=== PATIENT | male | born 1985 | race Two or more races ===

== ENCOUNTER 2017-01-25 11:36 | Emergency (ER) | payer OTHER ==
[2017-01-25 11:43] VITALS: BP 126/60
--- NOTE | 2017-01-25 12:48 | ED Physician Documentation ---
PD HPI SKIN - Stated complaint Stated Complaint: BUMP ON SIDE OF HEAD - Chief complaint Chief Complaint: General - History obtained from History obtained from: Patient - History of Present Illness Timing - onset: How many days ago (2-3) Timing - duration: Days Timing - details: Gradual onset, Still present Location: Face Associated symptoms: No: Fever, Myalgias, N/V/D Review of Systems Constitutional: denies: Fever, Myalgias Nose: denies: Rhinorrhea / runny nose, Congestion Throat: denies: Sore throat Respiratory: denies: Cough PD PAST MEDICAL HISTORY - Past Medical History Cardiovascular: None Endocrine/Autoimmune: None - Present Medications Home Medications: Ambulatory Orders Medication Instructions Recorded Confirmed Chlorhexidine Gluconate [Hibiclens] 10 ml TP DAILY #473 ml 01/25/17 Mupirocin 1 applic TP DAILY #15 oint...g. 01/25/17 - Allergies Allergies/Adverse Reactions: Allergies Allergy/AdvReac Type Severity Reaction Status Date / Time No Known Drug Allergies Allergy Verified 01/25/17 13:25 PD ED PE NORMAL - Vitals Vital signs reviewed: Yes - General General: Alert and oriented X 3, Well developed/nourished - HEENT HEENT: Other (right side of face preauricular with 1 cm abscess fluctuance and tender, red. ) - Neck Neck: Supple, no meningeal sign, No adenopathy Procedures - Abscess I&D (location) face Preparation: Confirmed with ultrasound, Lidocaine 1%, With epi Incision: Incised with scalpel, Purulent drainage Other: Pt tolerated well PD MEDICAL DECISION MAKING - ED course Complexity details: considered differential, d/w patient Departure - Departure Disposition: 01 Home, Self Care Clinical Impression: Abscess of face Condition: Stable Record reviewed to determine appropriate education?: Yes Instructions: ED Abscess IandD Follow-Up: Trina Diop MD [Primary Care Provider] - Prescriptions: Chlorhexidine Gluconate [Hibiclens] 10 ml TP DAILY #473 ml Mupirocin 1 applic TP DAILY #15 oint...g. Comments: Take the oral antibiotics prescribed at clinic today. Add daily body wash with antiseptic for a week then once weekly or so. Mupirocin antibiotic ointment daily to nares and fingernails for a few days then weekly. Discharge Date/Time: 01/25/17 13:57
[2017-01-25] MEDS ORDERED: LIDOCAINE 1%-EPI 1:100000 20 ML MDV SUBQ STA (13:20)
[2017-01-25] MEDS ORDERED: LIDOCAINE 1%-EPI 1:100000 20 ML MDV ONE (13:22)
== END 2017-01-25 13:57 | disposition home or self-care (01) ==
LOC: ED 11:36
DX: L02.01 Cutaneous abscess of face (principal)
CPT/HCPCS: 10060; 99283

== ENCOUNTER 2017-02-21 11:56 | Emergency (ER) | payer OTHER ==
--- NOTE | 2017-02-21 13:03 | ED Physician Documentation ---
History of Present Illness - Stated complaint Stated Complaint: R ARM CYST - Chief complaint Chief Complaint: Wound - History obtained from History obtained from: Patient - History of Present Illness Timing: Today Pain level max: 4 Pain level now: 4 Improved by: normally better with drainage Worsened by: nothing - Additonal information Additional information: R axilla abscess today. Has had this several times in the past. Review of Systems Constitutional: denies: Fever, Chills Cardiac: denies: Chest pain / pressure Respiratory: denies: Cough GI: denies: Abdominal Pain, Nausea, Vomiting, Diarrhea Skin: denies: Rash PD PAST MEDICAL HISTORY - Past Medical History Past Medical History: No Cardiovascular: None Endocrine/Autoimmune: None - Past Surgical History Past Surgical History: Yes Ortho: Other - Present Medications Home Medications: Ambulatory Orders Medication Instructions Recorded Confirmed Sulfamethox/Trimeth 800/160 1 each PO BID #14 tablet 02/21/17 [Bactrim Ds 800/160] - Allergies Allergies/Adverse Reactions: Allergies Allergy/AdvReac Type Severity Reaction Status Date / Time No Known Drug Allergies Allergy Verified 01/25/17 13:25 - Social History Does the pt smoke?: Yes Does the pt drink ETOH?: No Does the pt have substance abuse?: No - Immunizations Immunizations are current?: Yes PD ED PE NORMAL - Vitals Vital signs reviewed: Yes - General General: Alert and oriented X 3 - HEENT HEENT: Moist mucous membranes - Neck Neck: Supple, no meningeal sign - Cardiac Cardiac: RRR - Respiratory Respiratory: No respiratory distress, Clear bilaterally - Derm Derm: Warm and dry - Extremities Extremities: Other (R axilla - 2.5cm fluctuant raised area. ) - Neuro Neuro: Alert and oriented X 3 - Psych Psych: Normal mood, Normal affect Results - Vitals Vitals: Vital Signs - 24 hr 02/21/17 12:10 Temperature 36.8 C Heart Rate 81 Respiratory 16 Rate Blood Pressure 118/68 O2 Saturation 100 Oxygen O2 Source Room air Procedures - Abscess I&D (location) R axilla Preparation: Confirmed with ultrasound, Lidocaine 2 %, With epi Incision: Incised with scalpel, Needle aspiration, Purulent drainage, Irrigated , Culture obtained Other: Pt tolerated well, Dressing applied, Antibiotic prescribed PD MEDICAL DECISION MAKING - ED course Complexity details: reviewed results, re-evaluated patient, considered differential, d/w patient ED course: Patient with a right axillary abscess with moderate cellulitis. Incised and drained. Tolerated well. Will place on antibiotics given the surrounding cellulitis. Afebrile. Patient counseled regarding signs and symptoms for which I believe and urgent re-evaluation would be necessary. Patient with good understanding of and agreement to plan and is comfortable going home at this time This document was made in part using voice recognition software. While efforts are made to proofread this document, sound alike and grammatical errors may occur. Departure - Departure Disposition: 01 Home, Self Care Clinical Impression: Abscess Condition: Good Instructions: ED Abscess IandD Follow-Up: NIKOLAI VALDEZ [Primary Care Provider] - Within 3 Days Prescriptions: Sulfamethox/Trimeth 800/160 [Bactrim Ds 800/160] 1 each PO BID #14 tablet Comments: Take all antibiotics until gone. Return if you worsen. You may also suffer from a condition known as hidradenitis suppurativa which could be treated surgically. Talk to your doctor about this. Discharge Date/Time: 02/21/17 13:36
[2017-02-21] MEDS ORDERED: LIDOCAINE 2%-EPI 1:100000 20 ML MDV ONE (13:08)
[2017-02-21 13:11] VITALS: BP 118/68
== END 2017-02-21 13:36 | disposition home or self-care (01) ==
LOC: ED 11:56
DX: L02.411 Cutaneous abscess of right axilla (principal); L03.111 Cellulitis of right axilla; F17.200 Nicotine dependence, unspecified, uncomplicated
CPT/HCPCS: 10060; 87070; 87205; 99283

== ENCOUNTER 2017-03-07 13:04 | Outpatient (CLI) | payer OTHER ==
[2017-03-07] MEDS ORDERED: IOTHALAMATE MEGLUMINE 50 ML VIAL IVP ONE (14:18)
[2017-03-07] MEDS ORDERED: LIDOCAINE-MPF 1% 5 ML VIAL TD ONE (14:18)
[2017-03-07] MEDS ORDERED: GADOPENTETATE DIMEGLUMINE 5 ML VIAL IVP ONE (14:18)
[2017-03-07] MEDS ORDERED: BUFFERED LIDOCAINE 10 ML SYRINGE IU ONE (14:18)
--- NOTE | 2017-03-07 15:40 | MRI Report ---
EXAM: RIGHT SHOULDER MRI ARTHROGRAM WITH CONTRAST EXAM DATE: 03/07/2017 02:40 PM. CLINICAL HISTORY: PAIN IN RIGHT SHOULDER. COMPARISON: None. TECHNIQUE: Multiplanar, multisequence T1-weighted and fluid-sensitive sequences of the shoulder after an arthrographic injection of dilute gadolinium, dictated under a separate exam. Other: None. FINDINGS: Acromioclavicular Region: The acromion is unipartite type II without downsloping. The acromioclavicul ar joint is unremarkable. The acromioclavicular, coracoacromial and coracoclavicular ligaments are in tact. There is no contrast or fluid in the subacromial/subdeltoid bursa. Glenohumeral Region: No subluxation. No loose bodies. The articular cartilage is unremarkable. The gl enohumeral ligaments and joint capsule are unremarkable. Bone Marrow: No fracture, marrow edema or bone lesions. Labrum: The labrum is unremarkable. Biceps Tendon: Tendinosis of the intra-articular portion of the long head of the biceps tendon withou t tear. The biceps anchor and biceps mak are intact. Musculature/Rotator Cuff: Tendinosis of the supraspinatus, infraspinatus with mild articular surface fraying and a small intrasubstance delamination tear in the insertion of the conjoined tendon. The orozco bscapularis and teres minor tendons are intact. No edema or fatty atrophy. The coracohumeral distance is 8 mm. Other: The subcutaneous tissues are unremarkable. IMPRESSION: 1. Tendinosis of the supraspinatus, infraspinatus with mild articular surface fraying and a small int rasubstance delamination tear in the insertion of the conjoined tendon. 2. Tendinosis of the intra-articular portion of the long head of the biceps tendon without tear. 3. The labrum is normal. 4. No other significant abnormality is demonstrated. [facility] MUSCULOSKELET[facility] RADIOLOGY SECTION Referring Provider Line: [phone] SITE ID: [id number]
--- NOTE | 2017-03-07 16:22 | XRAY Report ---
FLUOROSCOPICALLY GUIDED RIGHT SHOULDER INJECTION FOR MR ARTHROGRAM: 03/07/2017 CLINICAL INDICATION: Pain. FINDINGS: Following obtaining informed consent, the patient's right shoulder was prepped and draped in the usual sterile fashion. The skin and soft tissues were anesthetized with lidocaine. A spinal needle was directed into the glenohumeral joint, and following confirmation of needle positioning, a combination of iodinated contrast, dilute gadolinium, and lidocaine was injected intraarticularly. T he patient tolerated the procedure well. No immediate complications. Spot image reveals no evidence of contrast extravasation. IMPRESSION: SUCCESSFUL RIGHT SHOULDER INJECTION FOR MR ARTHROGRAM. FLUOROSCOPY TIME: 44 seconds; 1 spot image obtained. JOB #: [id number] EXT JOB #:[id number]
== END 2017-03-07 13:05 | disposition home or self-care (01) ==
LOC: DI 13:04
PROVIDERS: ATTEND Family Medicine
DX: M75.101 Unspecified rotator cuff tear or rupture of right shoulder, not specified as traumatic (principal); M75.91 Shoulder lesion, unspecified, right shoulder
CPT/HCPCS: 23350; 73222; 77002; Q9961

== ENCOUNTER 2017-05-14 13:57 | Emergency (ER) | payer OTHER ==
--- NOTE | 2017-05-14 16:33 | ED Physician Documentation ---
PD HPI BACK PAIN - Stated complaint Stated Complaint: BACK PX - Chief complaint Chief Complaint: Back Pain - History obtained from History obtained from: Patient - History of Present Illness Timing - onset: How many days ago (4) Timing - duration: Days (4) Timing - details: Gradual onset, Still present Location: Lower Quality: Pain, Spasm, Sharp, Similar to prior episodes Associated symptoms: No: Fever, Weakness, Numbness, Incontinent of urine, Unable to urinate, Hematuria, Incontinent of stool Improves with: Rest, Ice Worsened by: Movement Contributing factors: Other (The patient has taken a break from working out and he has returned to working out and has over done it.) Similar symptoms before: Diagnosis (back spasm.) Recently seen: Not recently seen - Additional information Additional information: 31-year-old usually physically fit male has decreased his level of activity and has restarted activity again. He has developed pain in his lower back similar to what he has had previously when he has restarted exercising. He has a lot of spasm in his lower back and he has had treatment in the emergency department previously for this which has been quite beneficial. Review of Systems Constitutional: denies: Fever Respiratory: denies: Cough GI: denies: Vomiting : denies: Dysuria, Frequency, Incontinent Skin: denies: Rash Musculoskeletal: reports: Back pain. denies: Neck pain, Extremity pain Neurologic: denies: Generalized weakness, Focal weakness, Numbness PD PAST MEDICAL HISTORY - Past Medical History Cardiovascular: None Endocrine/Autoimmune: None - Past Surgical History Past Surgical History: Yes Ortho: Other - Present Medications Home Medications: Ambulatory Orders Medication Instructions Recorded Confirmed Cyclobenzaprine [Flexeril] 10 mg PO TID PRN #20 tablet 05/14/17 oxyCODONE [Roxicodone] 5 mg PO Q6H PRN #10 tablet 05/14/17 - Allergies Allergies/Adverse Reactions: Allergies Allergy/AdvReac Type Severity Reaction Status Date / Time No Known Drug Allergies Allergy Verified 05/14/17 14:10 - Social History Does the pt smoke?: Yes Does the pt drink ETOH?: No Does the pt have substance abuse?: No - Immunizations Immunizations are current?: Yes PD ED PE NORMAL - Vitals Vital signs reviewed: Yes (normal ) - General General: No acute distress, Well developed/nourished - HEENT HEENT: Atraumatic, PERRL - Respiratory Respiratory: No respiratory distress - Back Back: No CVA TTP, Other (There is tenderness to the paraspinous muscles of the lower lumbar spine. ) - Derm Derm: Normal color, Warm and dry, No rash - Extremities Extremities: No deformity - Neuro Neuro: Alert and oriented X 3, No motor deficit, No sensory deficit, Normal speech - Psych Psych: Normal mood, Normal affect Results - Vitals Vitals: Vital Signs - 24 hr 05/14/17 14:08 Temperature 36.8 C Heart Rate 67 Respiratory 16 Rate Blood Pressure 132/80 H O2 Saturation 100 Oxygen O2 Source Room air PD MEDICAL DECISION MAKING - ED course Complexity details: reviewed results, re-evaluated patient, considered differential, d/w patient, d/w family ED course: 31-year-old male with acute lower lumbar muscle spasm is given dexamethasone 10 mg orally and Toradol 60 mg IM. Departure - Departure Disposition: 01 Home, Self Care Clinical Impression: Back spasm Condition: Stable Instructions: ED Spasm Back No Trauma Follow-Up: NIKOLAI VALDEZ [Primary Care Provider] - Prescriptions: Cyclobenzaprine [Flexeril] 10 mg PO TID PRN #20 tablet PRN Reason: Spasms oxyCODONE [Roxicodone] 5 mg PO Q6H PRN #10 tablet PRN Reason: Pain
[2017-05-14] MEDS ORDERED: DEXAMETHASONE 10 MG/ML VIAL PO STA (16:54)
[2017-05-14] MEDS ORDERED: KETOROLAC 60 MG/2 ML VIAL IM STA (16:54)
[2017-05-14] MEDS ORDERED: DEXAMETHASONE 10 MG/ML VIAL ONE (17:05)
[2017-05-14] MEDS ORDERED: KETOROLAC 60 MG/2 ML VIAL ONE (17:05)
[2017-05-14 17:38] VITALS: BP 126/83
== END 2017-05-14 17:37 | disposition home or self-care (01) ==
LOC: ED 13:57
DX: M62.830 Muscle spasm of back (principal)
CPT/HCPCS: 96372; 99283

== ENCOUNTER 2017-05-17 16:52 | Emergency (ER) | payer OTHER ==
[2017-05-17] MEDS ORDERED: KETOROLAC 60 MG/2 ML VIAL IM STA (18:47)
[2017-05-17] MEDS ORDERED: HYDROmorphone 1 MG/ML SYRINGE IM STA (18:47)
--- NOTE | 2017-05-17 18:49 | ED Physician Documentation ---
PD HPI BACK PAIN - Stated complaint Stated Complaint: LOW BACK PX - Chief complaint Chief Complaint: Back Pain - History obtained from History obtained from: Patient, Family - History of Present Illness Pain level max: 8 Pain level now: 8 Location: Lower Quality: Pain, Spasm, Similar to prior episodes Associated symptoms: No: Fever, Weakness, Numbness, Incontinent of urine, Unable to urinate, Hematuria Improves with: Rest Worsened by: Movement Similar symptoms before: Diagnosis (Low back pain with spasm) Recently seen: Emergency Dept (Seen here recently for same) - Additional information Additional information: Patient is a 31-year-old male with a long history of chronic back pain. Worse over the past 5 days. Seen here recently for same and was improving on oxycodone and Flexeril, today was getting out of bed when he felt another spasm. He has a follow-up at the [facility] on Tuesday. No numbness or tingling in the bilateral lower extremities. No loss of bowel or bladder control. Does not use IV drugs. Review of Systems Constitutional: denies: Fever, Chills Nose: denies: Rhinorrhea / runny nose, Congestion Respiratory: denies: Cough GI: denies: Nausea, Vomiting, Diarrhea : denies: Unable to Void, Incontinent Skin: denies: Rash Musculoskeletal: denies: Neck pain Neurologic: denies: Focal weakness, Numbness PD PAST MEDICAL HISTORY - Past Medical History Past Medical History: Yes Cardiovascular: None Endocrine/Autoimmune: None Musculoskeletal: Chronic back pain - Past Surgical History Past Surgical History: Yes Ortho: Other - Present Medications Home Medications: Ambulatory Orders Medication Instructions Recorded Confirmed Cyclobenzaprine [Flexeril] 10 mg PO TID PRN #20 tablet 05/14/17 05/17/17 oxyCODONE [Roxicodone] 5 mg PO Q6H PRN #10 tablet 05/14/17 05/17/17 Cyclobenzaprine [Flexeril] 10 mg PO TID PRN #20 tablet 05/17/17 Meloxicam [Mobic] 7.5 mg PO BID PRN #20 tablet 05/17/17 Oxycodone HCl/Acetaminophen 1 - 2 each PO Q6H PRN #14 tablet 05/17/17 [Percocet 5-325 mg Tablet] - Allergies Allergies/Adverse Reactions: Allergies Allergy/AdvReac Type Severity Reaction Status Date / Time No Known Drug Allergies Allergy Verified 05/14/17 14:10 - Social History Does the pt smoke?: Yes Smoking Status: Current every day smoker Does the pt drink ETOH?: No Does the pt have substance abuse?: No - Immunizations Immunizations are current?: Yes - POLST Patient has POLST: No PD ED PE NORMAL - Vitals Vital signs reviewed: Yes - General General: Alert and oriented X 3, No acute distress, Well developed/nourished - HEENT HEENT: PERRL, Moist mucous membranes - Neck Neck: Supple, no meningeal sign - Cardiac Cardiac: RRR, Strong equal pulses - Respiratory Respiratory: No respiratory distress, Clear bilaterally - Abdomen Abdomen: Soft, Non tender, Non distended - Back Back: Other (No midline tenderness to palpation. Does have paraspinal muscle spasm right greater than left. Low lumbar) - Derm Derm: Warm and dry, No rash - Extremities Extremities: Other (normal bilateral lower extremity patellar and ankle jerk reflexes. Normal great toe extension bilaterally) - Neuro Neuro: Alert and oriented X 3, glove pairer 2-12 intact, No motor deficit, No sensory deficit - Psych Psych: Normal mood, Normal affect Results - Vitals Vitals: Vital Signs - 24 hr 05/17/17 05/17/17 17:13 20:02 Temperature 36.6 C Heart Rate 90 73 Respiratory 18 18 Rate Blood Pressure 119/71 119/60 O2 Saturation 99 96 Oxygen O2 Source Room air PD MEDICAL DECISION MAKING - ED course Complexity details: reviewed results, re-evaluated patient, considered differential (no cauda equina, no spinal epidural abscess, no fracture, no aortic dissection or evidence of aneursym rupture), d/w patient ED course: Patient is a 31-year-old male who presents to the emergency department with acute on chronic low back pain. Given Dilaudid and Toradol. Feels much better. Will prescribe pain medication and muscle relaxants for home. Has an appointment with his PCP this week that he will follow up with. No evidence of cauda equina, epidural abscess. No evidence of fracture. Ambulating well in the emergency department. Patient and family counseled regarding signs and symptoms for which I believe and urgent re-evaluation would be necessary. Patient with good understanding of and agreement to plan and is comfortable going home at this time This document was made in part using voice recognition software. While efforts are made to proofread this document, sound alike and grammatical errors may occur. Departure - Departure Disposition: 01 Home, Self Care Clinical Impression: Back spasm Condition: Good Instructions: ED Low Back Pain Injury Follow-Up: NIKOLAI VALDEZ [Primary Care Provider] - Within 1 week Prescriptions: Cyclobenzaprine [Flexeril] 10 mg PO TID PRN #20 tablet PRN Reason: Spasms Meloxicam [Mobic] 7.5 mg PO BID PRN #20 tablet PRN Reason: pain Oxycodone HCl/Acetaminophen [Percocet 5-325 mg Tablet] 1 - 2 each PO Q6H PRN # 14 tablet PRN Reason: pain Comments: Return if you worsen. This should improve over the next few days. Do not drink alcohol or drive while on narcotic pain medicine. Note that many narcotic pain relievers also contain tylenol/acetaminophen. Please ensure that your total dose of acetaminophen from all sources does not exceed 3 grams (3000mg) per day. You may constipated on this medication, take a stool softener such as "Colace" twice a day while you are on it. Also recommend a kzru-nru-kosrrwi laxative such as senna or MiraLAX any day that you do not have a bowel movement. If you received narcotic pain medication in the emergency department, do not drive or operate machinery for the next 24 hours. Forms: Activity restrictions Discharge Date/Time: 05/17/17 20:09
[2017-05-17] MEDS ORDERED: HYDROmorphone 1 MG/ML SYRINGE ONE (19:30)
[2017-05-17] MEDS ORDERED: KETOROLAC 60 MG/2 ML VIAL ONE (19:31)
[2017-05-17 20:02] VITALS: BP 119/60
== END 2017-05-17 20:09 | disposition home or self-care (01) ==
LOC: ED 16:52
DX: M62.830 Muscle spasm of back (principal); G89.29 Other chronic pain; F17.200 Nicotine dependence, unspecified, uncomplicated
CPT/HCPCS: 96372; 99283; J1170

== ENCOUNTER 2017-05-26 16:05 | Emergency (ER) | payer OTHER ==
[2017-05-26 16:13] VITALS: BP 122/86
[2017-05-26] MEDS ORDERED: DEXAMETHASONE 10 MG/ML VIAL PO STA (16:26)
--- NOTE | 2017-05-26 16:30 | ED Physician Documentation ---
PD HPI BACK PAIN - Stated complaint Stated Complaint: BACK PX - Chief complaint Chief Complaint: Back Pain - History obtained from History obtained from: Patient - History of Present Illness Timing - onset: How many days ago (12) Timing - duration: Days (12) Timing - details: Abrupt onset, Still present Location: Lower, Right Quality: Pain, Spasm, Sharp Associated symptoms: No: Fever, Weakness, Numbness, Incontinent of urine, Unable to urinate, Hematuria, Incontinent of stool Improves with: Rest, Position, Meds Worsened by: Movement, Lifting Contributing factors: Lifting Similar symptoms before: Diagnosis (lumbar spasm and sciatica) Recently seen: Emergency Dept (Seen in the ED X 2 and in the clinic for back spasm) - Additional information Additional information: 32-year-old fit male who likes to work out excessively has injured his back 12 days ago with excessive lifting and was treated in the emergency department with dexamethasone and pain medication and muscle relaxant he has some improvement the day following his first treatment with dexamethasone and then his pain came back a bit and he has had some improvement since then he did end up back in the emergency department several days later had further pain medication and the pain is now down to a 3 out of 10. He is now complaining of some pain that is different from what he has had in the lower back and that is going down the back of his right leg he is also seen that he has some weakness to lifting up his foot off of the gas pedal. He does have follow-up with his primary tomorrow. Review of Systems Constitutional: denies: Fever Eyes: denies: Decreased vision Ears: denies: Ear pain Nose: denies: Congestion Throat: denies: Sore throat Cardiac: denies: Chest pain / pressure Respiratory: denies: Cough GI: denies: Abdominal Pain, Nausea, Vomiting : denies: Dysuria Skin: denies: Rash Musculoskeletal: reports: Back pain, Extremity pain. denies: Neck pain, Extremity swelling, Joint swelling, Pain with weight bearing Neurologic: denies: Generalized weakness, Focal weakness, Numbness PD PAST MEDICAL HISTORY - Past Medical History Past Medical History: Yes Cardiovascular: None Endocrine/Autoimmune: None Musculoskeletal: Chronic back pain - Past Surgical History Past Surgical History: Yes Ortho: Other - Present Medications Home Medications: Ambulatory Orders Medication Instructions Recorded Confirmed Cyclobenzaprine [Flexeril] 10 mg PO TID PRN #20 tablet 05/14/17 05/17/17 oxyCODONE [Roxicodone] 5 mg PO Q6H PRN #10 tablet 05/14/17 05/17/17 Cyclobenzaprine [Flexeril] 10 mg PO TID PRN #20 tablet 05/17/17 Meloxicam [Mobic] 7.5 mg PO BID PRN #20 tablet 05/17/17 Oxycodone HCl/Acetaminophen 1 - 2 each PO Q6H PRN #14 tablet 05/17/17 [Percocet 5-325 mg Tablet] - Allergies Allergies/Adverse Reactions: Allergies Allergy/AdvReac Type Severity Reaction Status Date / Time nickel Allergy Rash Verified 05/26/17 16:13 - Social History Does the pt smoke?: Yes Smoking Status: Current every day smoker Does the pt drink ETOH?: No Does the pt have substance abuse?: No - Immunizations Immunizations are current?: Yes - POLST Patient has POLST: No PD ED PE NORMAL - Vitals Vital signs reviewed: Yes (Hypertensive mild) - General General: No acute distress, Well developed/nourished - HEENT HEENT: Atraumatic, PERRL - Respiratory Respiratory: No respiratory distress - Back Back: No CVA TTP, No spinal TTP, Other (The paraspinous muscle tenderness is now resolved and there is minimal tenderness in the sciatic notch.) - Derm Derm: Normal color, Warm and dry, No rash - Extremities Extremities: No deformity, No edema - Neuro Neuro: No motor deficit, No sensory deficit, Other (There is a subtle difference in dorsiflexion strength between the right and left foot the right is weaker. There is no numbness to the dorsum of the foot.) - Psych Psych: Normal mood, Normal affect Results - Vitals Vitals: Vital Signs - 24 hr 05/26/17 16:09 Temperature 37 C Heart Rate 75 Respiratory 18 Rate Blood Pressure 122/86 H O2 Saturation 99 Oxygen O2 Source Room air PD MEDICAL DECISION MAKING - ED course Complexity details: reviewed old records, considered differential, d/w patient ED course: 32-year-old male with lumbar strain followed by sciatica has signs and symptoms of Sciatica today with some pain radiating down the right leg and some weakness of dorsiflexion on the right foot. Here in the emergency form he is administered a second dose of dexamethasone and he will follow-up with his primary. I have discussed with the patient exercises for strengthening of his back to include symmetric full range of motion against elastic resistance. Departure - Departure Disposition: 01 Home, Self Care Clinical Impression: Sciatica Qualifiers: Laterality: right Qualified Code(s): M54.31 - Sciatica, right side Condition: Stable Instructions: ED Sciatica Follow-Up: NIKOLAI VALDEZ [Primary Care Provider] -
[2017-05-26] MEDS ORDERED: DEXAMETHASONE 10 MG/ML VIAL ONE (16:32)
== END 2017-05-26 16:45 | disposition home or self-care (01) ==
LOC: ED 16:05
DX: M54.31 Sciatica, right side (principal); S39.012A Strain of muscle, fascia and tendon of lower back, initial encounter; X50.0XXA Overexertion from strenuous movement or load, initial encounter; Y93.89 Activity, other specified; F17.200 Nicotine dependence, unspecified, uncomplicated
CPT/HCPCS: 99283

== ENCOUNTER 2017-09-17 00:26 | Emergency (ER) | payer OTHER ==
[2017-09-17] MEDS ORDERED: LIDOCAINE VISCOUS 2% 15 ML UDC MM STA (01:41)
[2017-09-17] MEDS ORDERED: IOPAMIDOL-300 100 ML VIAL ONE (02:31)
[2017-09-17 02:34] LABS: CALCIUM 8.8 mg/dL (8.5-10.3)
[2017-09-17] MEDS ORDERED: AMPICILLIN/SULBACTAM 3 GM in SODIUM CHLORIDE 0.9% MINIBAG 100 ML IV STA (02:34)
[2017-09-17 02:42] LABS: BASOPHILS % (AUTO) 0.3 %; EOSINOPHILS % (AUTO) 0.9 %; HGB - HEMOGLOBIN 15.5 g/dL (14.0-18.0); LYMPHOCYTES % (AUTO) 9.6 %; MEAN CORPUSCULAR HEMOGLOBIN 31.9 pg (27.0-31.0); MEAN CORPUSCULAR HGB CONC 34.6 g/dL (32.0-36.0); MEAN CORPUSCULAR VOLUME 92.1 fL (80.0-94.0); MEAN PLATELET VOLUME 9.3 fL (7.4-11.4); MONOCYTES % (AUTO) 12.1 %; NEUTROPHILS % (AUTO) 77.1 %; PLT - PLATELET COUNT 228 10^3/uL (130-450); RED BLOOD COUNT 4.86 10^6/uL (4.70-6.10); RED CELL DISTRIBUTION WIDTH 12.5 % (12.0-15.0); WHITE BLOOD COUNT 19.6 x10^3/uL (4.8-10.8)
[2017-09-17] MEDS ORDERED: IOPAMIDOL-300 100 ML VIAL IVP ONE (02:45)
[2017-09-17 02:56] LABS: ABNORMAL LYMPHS % (MANUAL) 0 %
--- NOTE | 2017-09-17 03:27 | CT Report ---
EXAM: CT SOFT TISSUE NECK WITH CONTRAST. EXAM DATE: 09/17/2017 02:54 AM. HISTORY: Facial abscess, trismus COMPARISONS: None. TECHNIQUE: Routine soft tissue neck CT protocol. Reconstructions: Coronal and sagittal. IV contrast: Amt/Type. In accordance with CT protocol optimization, one or more of the following dose reduction techniques w ere utilized for this exam: automated exposure control, adjustment of mA and/or KV based on patient s ize, or use of iterative reconstructive technique. FINDINGS: Visualized Intracranial Contents: Unremarkable. Orbits: Symmetric and unremarkable. Sinuses: Visualized paranasal sinuses and mastoid air cells are clear. Pharynx : There is an 18 x 19 mm right peritonsillar abscess. There is narrowing of the right aspect of the airway. There is no evidence of retropharyngeal fluid collection. Larynx: Larynx and supraglottic airway are patent without mass lesion. Vocal cords are symmetric. The visualized trachea is unremarkable. Oral cavity and tongue: The visualized oral cavity is unremarkable. The floor of the mouth is symmetr ic. Parotid and Submandibular Glands: Symmetric and unremarkable. Lymph Nodes: There are multiple small prominent lymph nodes, particularly right levels 1 and 2. Right submandibular lymph node measures up to 1.5 cm in short axis. Right jugulodigastric lymph node measu res up to 1.6 cm in short axis. Vascular Structures: Unremarkable. Thyroid Gland: Normal. Lung: The visualized lung apices are clear. Bones: No evidence of acute fracture or malalignment. There are mild degenerative changes. Other: None. IMPRESSION: 1.8 cm right peritonsillar abscess with reactive right level I and level II cervical nitza nopathy. [facility] Referring Provider Line: [phone] SITE ID: [id number]
[2017-09-17] MEDS ORDERED: DEXAMETHASONE 10 MG/ML VIAL PO STA (03:51)
--- NOTE | 2017-09-17 03:51 | ED Physician Documentation ---
PD HPI HEENT - Stated complaint Stated Complaint: THROAT SWELLING - Chief complaint Chief Complaint: Heent - History obtained from History obtained from: Patient - History of Present Illness Timing - onset: How many days ago (3) Timing - details: Gradual onset, Still present Location: Throat Worsens: Swalllowing Associated symptoms: Unable to swallow, Facial swelling. No: Fever, Congestion Similar symptoms before: Has not had sx before Recently seen: Clinic - Additional information Additional information: Patient is a 32 year old male with no significant past medical history who is presenting to the emergency department for throat swelling. patient states that it has been going on for the last few days. He went to see his doctor today who stated he didn't have strep and was ok. patient states that the swelling got worse so he came to the emergency department for further evaluation. Review of Systems Constitutional: denies: Fever, Chills Eyes: denies: Decreased vision Ears: reports: Reviewed and negative Nose: denies: Rhinorrhea / runny nose, Congestion Throat: reports: Oral lesions / sores, Sore throat, Swollen tonsils Cardiac: reports: Reviewed and negative Respiratory: reports: Reviewed and negative GI: reports: Reviewed and negative. denies: Nausea, Vomiting : reports: Reviewed and negative Skin: reports: Reviewed and negative Musculoskeletal: reports: Reviewed and negative Neurologic: reports: Reviewed and negative Immunocompromised: denies: Immunocompromised PD PAST MEDICAL HISTORY - Past Medical History Cardiovascular: None Endocrine/Autoimmune: None Musculoskeletal: Chronic back pain - Past Surgical History Past Surgical History: Yes Ortho: Other - Present Medications Home Medications: Ambulatory Orders Medication Instructions Recorded Confirmed Amox/Clav 875/125 [Augmentin] 1 each PO Q12H #28 tablet 09/17/17 - Allergies Allergies/Adverse Reactions: Allergies Allergy/AdvReac Type Severity Reaction Status Date / Time nickel Allergy Rash Verified 09/17/17 00:47 - Social History Does the pt smoke?: Yes Smoking Status: Current every day smoker Does the pt drink ETOH?: No Does the pt have substance abuse?: No - Immunizations Immunizations are current?: Yes - POLST Patient has POLST: No PD ED PE NORMAL - Vitals Vital signs reviewed: Yes - General General: Alert and oriented X 3, Well developed/nourished - HEENT HEENT: Atraumatic, PERRL - Cardiac Cardiac: RRR, No murmur - Respiratory Respiratory: No respiratory distress - Abdomen Abdomen: Soft - Derm Derm: Normal color, Warm and dry, No rash - Extremities Extremities: No deformity - Neuro Neuro: Alert and oriented X 3, No motor deficit, No sensory deficit PD ED PE EXPANDED - HEENT 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, 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, 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, Other (swelling or right posterior pharyngeal region, difficulty swallowing but no pooling of secretions) - Neck Neck: Adenopathy Results - Vitals Vitals: Vital Signs - 24 hr 09/17/17 00:42 Temperature 37.2 C Heart Rate 90 Respiratory 18 Rate Blood Pressure 151/100 H O2 Saturation 98 Oxygen O2 Source Room air - Labs Labs: Laboratory Tests 09/17/17 09/17/17 01:20 01:20 WBC 19.6 H RBC 4.86 Hgb 15.5 Hct 44.8 MCV 92.1 MCH 31.9 H MCHC 34.6 RDW 12.5 Plt Count 228 MPV 9.3 Sodium 134 L Potassium 4.2 Chloride 99 L Carbon Dioxide 27 Anion Gap 8.0 BUN 11 Creatinine 1.0 Estimated GFR (MDRD) 86 L Glucose 116 H Calcium 8.8 - Rads (name of study) ct soft tissue neck Radiology: Final report received (2cm captain's assistant) Procedures - Abscess I&D (location) right captain's assistant Incision: Needle aspiration Other: Pt tolerated well, Antibiotic prescribed PD MEDICAL DECISION MAKING - ED course Complexity details: reviewed old records, reviewed results, re-evaluated patient , considered differential, d/w patient ED course: Patient was seen and examined at bedside. Patient appeared to clinically have a captain's assistant but had trismus and adenopathy so imaging was ordered. Patient was started on unasyn. when patient returned the results were reviewed and confirmed captain's assistant. Needle aspiration was performed with minimal discharge but patient refused more stating he didn't like needles and the pressure was relieved. Upon discharge patient was febrile but stated he had motrin and tylenol at home and that he wanted to leave. Patient was given detailed discharge and follow up instructions. patient required no further work up and was stable for discharge with outpatient follow up. Departure - Departure Disposition: 01 Home, Self Care Clinical Impression: Peritonsillar abscess Condition: Good Instructions: ED Peritonsillar Abscess Follow-Up: NIKOLAI VALDEZ [Primary Care Provider] - Within 3 Days Prescriptions: Amox/Clav 875/125 [Augmentin] 1 each PO Q12H #28 tablet Comments: Your symptoms today are being caused by a peritonsillar abscess. it should drain over the next few days. You were also started on antibiotics for which you will take twice a day for 2 weeks. You can take motrin or tylenol as needed for pain. You should follow up with your doctor if your symptoms persist. You may return to the emergency department at any time for new, worsening or uncontrollable symptoms. Forms: Activity restrictions
[2017-09-17] MEDS ORDERED: CHERRY SYRUP 10 ML UDC PO ONE (04:02)
[2017-09-17 04:07] VITALS: BP 137/73
[2017-09-17 04:34] LABS: BAND NEUTROPHILS % (MANUAL) 4 %; BASOPHILS # (MANUAL) 0.2 10^3/uL (0-0.1); BASOPHILS % (MANUAL) 1 %; DIFFERENTIAL COMMENT MANUAL DIFFERENTIAL; LYMPHOCYTES # (MANUAL) 1.4 10^3/uL (1.5-3.5); LYMPHOCYTES % (MANUAL) 7 %; MONOCYTES # (MANUAL) 2.5 10^3/uL (0.0-1.0); NEUTROPHILS # (MANUAL) 15.5 10^3/uL (1.5-6.6); NEUTROPHILS % (MANUAL) 75 %; PLATELET ESTIMATE, MANUAL NORMAL (130-450,000) (NORMAL); RBC MORPHOLOGY (MULTIPLE) NORMAL APPEARANCE (NORMAL)
== END 2017-09-17 04:08 | disposition home or self-care (01) ==
LOC: ED 00:26
DX: J36 Peritonsillar abscess (principal); F17.200 Nicotine dependence, unspecified, uncomplicated
CPT/HCPCS: 36415; 42700; 70491; 80048; 85025; 96365; 99283; A9270; Q9967

== ENCOUNTER 2017-09-19 00:34 | Emergency (ER) | payer OTHER ==
[2017-09-19] MEDS ORDERED: fentaNYL 100 MCG/2 ML VIAL IVP STA (00:56)
[2017-09-19] MEDS ORDERED: AMPICILLIN/SULBACTAM 3 GM in SODIUM CHLORIDE 0.9% MINIBAG 100 ML IV STA (00:56)
[2017-09-19] MEDS ORDERED: methylPREDNISolone SUCCINATE 125 MG/2 ML VIAL IVP STA (00:56)
[2017-09-19] MEDS ORDERED: BENZOCAINE SPRAY MM STA (01:10)
--- NOTE | 2017-09-19 01:57 | ED Physician Documentation ---
PD HPI HEENT - Stated complaint Stated Complaint: SWOLLEN THROAT - Chief complaint Chief Complaint: Heent - History obtained from History obtained from: Patient - History of Present Illness Timing - onset: How many days ago (3) Timing - details: Gradual onset, Still present Location: Throat Worsens: Swalllowing Associated symptoms: Unable to swallow. No: Fever Similar symptoms before: Work up / diagnostics, Treatment Recently seen: Emergency Dept - Additional information Additional information: Patient is a 32 year old male with no significant past medical history who is presenting to the emergency department for throat swelling. patient was seen in the emergency department a few days prior. patient was treated with iv antibiotics, decadron and needle aspiration. 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 patient states that he has not been able to swallow the antibiotics so he came back in for evaluation. Review of Systems Constitutional: denies: Fever, Chills Eyes: denies: Decreased vision Ears: denies: Ear pain Nose: denies: Congestion Throat: reports: Sore throat, Swollen tonsils Respiratory: denies: Cough GI: denies: Nausea, Vomiting : reports: Reviewed and negative Skin: denies: Rash, Lesions Neurologic: denies: Generalized weakness, Focal weakness, Headache Immunocompromised: denies: Immunocompromised PD PAST MEDICAL HISTORY - Past Medical History Past Medical History: Yes Cardiovascular: None Endocrine/Autoimmune: None Musculoskeletal: Chronic back pain - Past Surgical History Past Surgical History: Yes Ortho: Other - Present Medications Home Medications: Ambulatory Orders Medication Instructions Recorded Confirmed Amox/Clav 875/125 [Augmentin] 1 each PO Q12H #28 tablet 09/17/17 Amoxicillin/Potassium Clav 7.5 ml PO BID #150 ml 09/19/17 [Augmentin Es-600 Suspension] - Allergies Allergies/Adverse Reactions: Allergies Allergy/AdvReac Type Severity Reaction Status Date / Time nickel Allergy Rash Verified 09/17/17 00:47 - Social History Does the pt smoke?: Yes Smoking Status: Current every day smoker Does the pt drink ETOH?: No Does the pt have substance abuse?: No - Immunizations Immunizations are current?: Yes - POLST Patient has POLST: No PD ED PE NORMAL - Vitals Vital signs reviewed: Yes - General General: Alert and oriented X 3, No acute distress - HEENT HEENT: Atraumatic, PERRL - Neck Neck: Supple, no meningeal sign - Cardiac Cardiac: RRR, No murmur - Respiratory Respiratory: No respiratory distress - Abdomen Abdomen: Soft, Non tender, Non distended - Derm Derm: Normal color, Warm and dry - Extremities Extremities: No deformity, Normal ROM s pain - Neuro Neuro: Alert and oriented X 3, No motor deficit, No sensory deficit - Psych Psych: Normal mood PD ED PE EXPANDED - 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 IV access was gained and patient was treated with unasyn 3gm, solumedrol, fentanyl and ativan. Needle aspiration was performed but only produced sanginous return so no scalpel was used. Patient's symptoms did improve and he was able to swallow PO without difficulty. Patient's augmentin was changed to suspension. Patient was stable for discharge with close outpatient follow up. Departure - Departure Disposition: 01 Home, Self Care Clinical Impression: Peritonsillar abscess Condition: Stable Instructions: ED Peritonsillar Abscess Follow-Up: NIKOLAI VALDEZ [Primary Care Provider] - Tomorrow Prescriptions: Amoxicillin/Potassium Clav [Augmentin Es-600 Suspension] 7.5 ml PO BID #150 ml Comments: Your symptoms today are being caused by an abscess in your throat. You had additional IV antibiotics tonight and your antibiotics have been switched to liquid form. it is important that you follow up with your doctor tomorrow for re-check. You can return to the emergency department at any time for new or worsening symptoms. Forms: Activity restrictions
[2017-09-19 02:31] VITALS: BP 133/76
== END 2017-09-19 02:30 | disposition home or self-care (01) ==
LOC: ED 00:34
DX: J36 Peritonsillar abscess (principal); F17.200 Nicotine dependence, unspecified, uncomplicated
CPT/HCPCS: 42700; 96365; 96375; 99283; 99284

== ENCOUNTER 2018-01-08 19:14 | Emergency (ER) | payer OTHER ==
[2018-01-08 19:24] VITALS: BP 114/74
[2018-01-08] MEDS ORDERED: DEXAMETHASONE 10 MG/ML VIAL PO STA (20:04)
[2018-01-08] MEDS ORDERED: AMOX/CLAV 875 MG/125 MG TABLET PO STA (20:04)
--- NOTE | 2018-01-08 20:13 | ED Physician Documentation ---
PD HPI HEENT - Stated complaint Stated Complaint: SORE THROAT - Chief complaint Chief Complaint: Abd Pain - History obtained from History obtained from: Patient - History of Present Illness Timing - onset: How many days ago Timing - details: Gradual onset, Still present Location: Throat Associated symptoms: Swollen nodes. 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 Patient states that it got better but now he is starting to develop the similar symptoms on the left side of his throat, with swollen glands on his neck. Patient denies fever, chills, nausea or vomiting. Patient also states that he has had some lower abdominal pain after working out at the gym. Patient has as prior history of inguinal hernias that have been repaired. Review of Systems Constitutional: denies: Fever, Chills Nose: denies: Congestion Throat: reports: Oral lesions / sores, Sore throat, Swollen tonsils GI: reports: Abdominal Pain. denies: Nausea, Vomiting : denies: Dysuria, Frequency, Hesitancy Skin: denies: Rash, Lesions Neurologic: denies: Generalized weakness, Focal weakness, Headache Immunocompromised: denies: Immunocompromised PD PAST MEDICAL HISTORY - Past Medical History Cardiovascular: None Endocrine/Autoimmune: None GI: Hiatal hernia Musculoskeletal: Chronic back pain - Past Surgical History Past Surgical History: Yes General: Hiatal hernia repair Ortho: Other - Present Medications Home Medications: Ambulatory Orders Medication Instructions Recorded Confirmed Amox/Clav 875/125 [Augmentin] 1 each PO Q12H #14 tablet 01/08/18 - Allergies Allergies/Adverse Reactions: Allergies Allergy/AdvReac Type Severity Reaction Status Date / Time nickel Allergy Rash Verified 01/08/18 19:24 - Social History Does the pt smoke?: Yes Smoking Status: Current every day smoker Does the pt drink ETOH?: No Does the pt have substance abuse?: No - Immunizations Immunizations are current?: Yes - POLST Patient has POLST: No PD ED PE NORMAL - Vitals Vital signs reviewed: Yes - General General: Alert and oriented X 3 - HEENT HEENT: Atraumatic - Neck Neck: Supple, no meningeal sign - Cardiac Cardiac: RRR - Respiratory Respiratory: No respiratory distress - Abdomen Abdomen: Soft, Non tender, Non distended - Derm Derm: Normal color, Warm and dry - Extremities Extremities: No deformity - Neuro Neuro: Alert and oriented X 3 - Psych Psych: Normal mood PD ED PE EXPANDED - HEENT HEENT: Pharyngeal erythema, Swollen tonsils, LICENSED AND CERTIFIED MIDWIFE (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 Patient's previous records had been reviewed. Patient stated that he did not want an attempt at aspiration. patient was treated with decadron and augmentin. Patient was able to swallow without difficulty. Patient required no further work up was stable for discharge with outpatient follow up. Departure - Departure Disposition: 01 Home, Self Care Clinical Impression: Peritonsillar abscess Condition: Good Instructions: ED Peritonsillar Abscess Follow-Up: NIKOLAI VALDEZ [Primary Care Provider] - Tomorrow Prescriptions: Amox/Clav 875/125 [Augmentin] 1 each PO Q12H #14 tablet Comments: it seems like you are developing another abscess. You will be started on antibiotics again. You will need to follow up with your doctor in the next few days for wound check/evaluation. You can take motrin or tylenol as needed for pain. As far as hernia evaluation [place] general [place]. Discharge Date/Time: 01/08/18 20:16
[2018-01-08] MEDS ORDERED: CHERRY SYRUP 10 ML UDC PO ONE (20:16)
== END 2018-01-08 20:16 | disposition home or self-care (01) ==
LOC: ED 19:14
DX: J36 Peritonsillar abscess (principal); R10.30 Lower abdominal pain, unspecified; F17.200 Nicotine dependence, unspecified, uncomplicated
CPT/HCPCS: 87070; 87430; 99283; A9270

== ENCOUNTER 2018-04-09 15:56 | Emergency (ER) | payer OTHER ==
[2018-04-09] MEDS ORDERED: IBUPROFEN 800 MG TABLET PO STA (16:28)
--- NOTE | 2018-04-09 16:28 | ED Physician Documentation ---
PD HPI LOWER EXT INJURY - Stated complaint Stated Complaint: RT ANKLE PX - Chief complaint Chief Complaint: Ext Problem - History obtained from History obtained from: Patient - History of Present Illness PD HPI LOW EXT INJURY LOCATION: Right, Ankle Type of injury: Twist (eversion injury) Where injury occurred: Other (gym) Timing - onset: How many hours ago (2) Timing - duration: Hours (2) Timing - details: Abrupt onset Pain level max: 4 Pain level now: 4 Improved by: Rest, Ice, Immobilization Worsened by: Moving, Palpating Associated symptoms: Swelling. No: Weakness, Numbness, Tingling Similar symptoms before: Diagnosis (ankle sprain) Recently seen: Not recently seen Review of Systems Neurologic: denies: Focal weakness, Numbness PD PAST MEDICAL HISTORY - Past Medical History Past Medical History: Yes Cardiovascular: None Endocrine/Autoimmune: None GI: Hiatal hernia Musculoskeletal: Chronic back pain - Past Surgical History Past Surgical History: Yes General: Hiatal hernia repair Ortho: Other - Present Medications Home Medications: Ambulatory Orders Medication Instructions Recorded Confirmed Amox/Clav 875/125 [Augmentin] 1 each PO Q12H #14 tablet 01/08/18 Meloxicam [Mobic] 15 mg PO DAILY PRN #20 tablet 04/09/18 - Allergies Allergies/Adverse Reactions: Allergies Allergy/AdvReac Type Severity Reaction Status Date / Time nickel Allergy Rash Verified 04/09/18 16:08 - Social History Does the pt smoke?: Yes Smoking Status: Current every day smoker Does the pt drink ETOH?: No Does the pt have substance abuse?: No - Immunizations Immunizations are current?: Yes - POLST Patient has POLST: No PD ED PE NORMAL - Vitals Vital signs reviewed: Yes - General General: Alert and oriented X 3, No acute distress - HEENT HEENT: Moist mucous membranes - Neck Neck: Supple, no meningeal sign - Derm Derm: Warm and dry - Extremities Extremities: Other (R ankle - TTP over the medial malleolus. mild swelling. NVI. ) - Neuro Neuro: Alert and oriented X 3 - Psych Psych: Normal mood, Normal affect Results - Vitals Vitals: Vital Signs - 24 hr 04/09/18 04/09/18 16:05 17:24 Temperature 36.7 C 36.9 C Heart Rate 76 65 Respiratory 16 18 Rate Blood Pressure 142/81 H 125/75 O2 Saturation 98 99 Oxygen O2 Source Room air - Rads (name of study) R ankle xray Radiology: Prelim report reviewed, EMP read contemporaneously, See rad report ( No acute findings. ) PD MEDICAL DECISION MAKING - ED course Complexity details: reviewed results, re-evaluated patient, considered differential, d/w patient ED course: Patient with an ankle sprain. negative xray. Placed in a gel splint and crutches. Will follow up with PCP for further care. Counseled regarding missed fractures and may need repeat xrays if not improving. Patient counseled regarding signs and symptoms for which I believe and urgent re-evaluation would be necessary. Patient with good understanding of and agreement to plan and is comfortable going home at this time This document was made in part using voice recognition software. While efforts are made to proofread this document, sound alike and grammatical errors may occur. - Sepsis Event Vital Signs: Vital Signs - 24 hr 04/09/18 04/09/18 16:05 17:24 Temperature 36.7 C 36.9 C Heart Rate 76 65 Respiratory 16 18 Rate Blood Pressure 142/81 H 125/75 O2 Saturation 98 99 Oxygen O2 Source Room air Departure - Departure Disposition: 01 Home, Self Care Clinical Impression: Ankle sprain Qualifiers: Encounter type: initial encounter Involved ligament of ankle: unspecified ligament Laterality: right Qualified Code(s): S93.401A - Sprain of unspecified ligament of right ankle, initial encounter Condition: Good Instructions: ED Sprain Ankle Follow-Up: NIKOLAI VALDEZ [Primary Care Provider] - Within 1 week Prescriptions: Meloxicam [Mobic] 15 mg PO DAILY PRN #20 tablet PRN Reason: pain Comments: Return if you worsen. Keep the brace on for the next week. Your xrays are normal today, but should be repeated if you are not better in 1 week Forms: Activity restrictions Discharge Date/Time: 04/09/18 17:33
--- NOTE | 2018-04-09 16:46 | XRAY Report ---
Procedure Date: 04/09/2018 Accession Number: [id number] / [id number] Procedure: XR - Ankle 3 View RT CPT Code: FULL RESULT: EXAM: RIGHT ANKLE RADIOGRAPHY EXAM DATE: 04/09/2018 04:37 PM. CLINICAL HISTORY: Right ankle pain. COMPARISON: None. TECHNIQUE: 3 views. FINDINGS: Bones: No fracture or bone lesion. Joints: Small well-corticated osseous fragments are seen along the tip of the medial malleolus related to old trauma or accessory ossicle. Soft Tissues: Normal. No soft tissue swelling. IMPRESSION: No acute findings. [facility]
[2018-04-09 17:24] VITALS: BP 125/75
== END 2018-04-09 17:33 | disposition home or self-care (01) ==
LOC: ED 15:56
DX: S93.401A Sprain of unspecified ligament of right ankle, initial encounter (principal); X50.9XXA Other and unspecified overexertion or strenuous movements or postures, initial encounter; Y92.39 Other specified sports and athletic area as the place of occurrence of the external cause; F17.200 Nicotine dependence, unspecified, uncomplicated
CPT/HCPCS: 73610; 99283; A9270

== ENCOUNTER 2018-05-25 21:32 | Emergency (ER) | payer OTHER ==
[2018-05-25] MEDS ORDERED: predniSONE 20 MG TABLET PO STA (21:53)
[2018-05-25] MEDS ORDERED: IBUPROFEN 800 MG TABLET PO STA (21:53)
--- NOTE | 2018-05-25 21:56 | ED Physician Documentation ---
PD HPI CHEST PAIN - Stated complaint Stated Complaint: CP/L SIDE PX - Chief complaint Chief Complaint: Cardiac - History obtained from History obtained from: Patient - History of Present Illness Timing - onset: Today (33-year-old gentleman with chronic back pain. 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 He also has left-sided low back pain radiating into the leg but over the last 36 hours or so it has radiated further down the calf with numbness on the lateral side of the left foot which is new for him. There is no associated saddle anesthesia or fevers. He is able to walk and bear weight. No urinary incontinence. Earlier today he was sitting at his desk at rest at work and developed sharp left-sided chest pain which is been intermittent lasting only seconds to minutes at a time ever since. It is not associated with back pain of the upper back, shortness of breath, dizziness, sore throat. He does have some fatigue. No recent travel or history of heart issues.) Review of Systems Constitutional: denies: Fever, Chills Throat: denies: Sore throat Cardiac: reports: Chest pain / pressure. denies: Palpitations Respiratory: denies: Dyspnea, Cough GI: denies: Abdominal Pain, Nausea, Vomiting PD PAST MEDICAL HISTORY - Past Medical History Past Medical History: Yes Cardiovascular: None Endocrine/Autoimmune: None GI: Hiatal hernia Musculoskeletal: Chronic back pain - Past Surgical History Past Surgical History: Yes General: Hiatal hernia repair Ortho: Other - Present Medications Home Medications: Ambulatory Orders Medication Instructions Recorded Confirmed Amox/Clav 875/125 [Augmentin] 1 each PO Q12H #14 tablet 01/08/18 Meloxicam [Mobic] 15 mg PO DAILY PRN #20 tablet 04/09/18 Oxycodone HCl/Acetaminophen 1 - 2 each PO Q6H PRN #7 tablet 05/25/18 [Percocet 5-325 mg Tablet] predniSONE [Prednisone] 60 mg PO DAILY 5 Days #15 tablet 05/25/18 - Allergies Allergies/Adverse Reactions: Allergies Allergy/AdvReac Type Severity Reaction Status Date / Time nickel Allergy Rash Verified 05/25/18 21:43 - Social History Does the pt smoke?: Yes Smoking Status: Current every day smoker Does the pt drink ETOH?: No Does the pt have substance abuse?: No - Immunizations Immunizations are current?: Yes - POLST Patient has POLST: No PD ED PE NORMAL - Vitals Vital signs reviewed: Yes - General General: Alert and oriented X 3, No acute distress - HEENT HEENT: PERRL, EOMI - Neck Neck: Supple, no meningeal sign, No bony TTP - Cardiac Cardiac: RRR (With occasional ectopy. He has no chest wall tenderness.), No murmur - Respiratory Respiratory: No respiratory distress, Clear bilaterally - Abdomen Abdomen: Non tender - Back Back: Other (Left paralumbar tenderness) - Extremities Extremities: Other (Diminished but not absent sensation of the lateral side of the left foot with diminished Achilles reflex on the left but not absent. Above the ankles and on the medial side of the foot he has symmetric sensation throughout and he has normal patellar reflexes.) - Neuro Neuro: Alert and oriented X 3, Normal speech Results - Vitals Vitals: Vital Signs - 24 hr 05/25/18 21:40 Temperature 36.8 C Heart Rate 76 Respiratory 16 Rate Blood Pressure 114/63 O2 Saturation 97 Oxygen O2 Source Room air - EKG (time done) 236 Rate: Rate (enter#) (85) Rhythm: NSR (With occasional PVCs) North: Normal Intervals: Normal ND QRS: Normal Ischemia: Normal ST segments Computer interpretation: Agree with computer - Labs Labs: Laboratory Tests 05/25/18 22:07 Troponin I < 0.04 - Rads (name of study) 2v chest Radiology: EMP read contemporaneously (normal) PD MEDICAL DECISION MAKING - ED course ED course: 33-year-old gentleman with chronic back pain now with worsening radicular symptoms and also some atypical chest pain tonight. No acute findings on workup. - Sepsis Event Vital Signs: Vital Signs - 24 hr 05/25/18 21:40 Temperature 36.8 C Heart Rate 76 Respiratory 16 Rate Blood Pressure 114/63 O2 Saturation 97 Oxygen O2 Source Room air Departure - Departure Disposition: 01 Home, Self Care Clinical Impression: Atypical chest pain Sciatica Qualifiers: Laterality: left Qualified Code(s): M54.32 - Sciatica, left side Condition: Good Record reviewed to determine appropriate education?: Yes Instructions: ED Chest Pain NonCardiac, ED Sciatica Prescriptions: Oxycodone HCl/Acetaminophen [Percocet 5-325 mg Tablet] 1 - 2 each PO Q6H PRN #7 tablet PRN Reason: pain predniSONE [Prednisone] 60 mg PO DAILY 5 Days #15 tablet Comments: Call your doctor to arrange a follow-up appointment, make the next available appointment. In the interim, return anytime if worse or if new symptoms develop.
--- NOTE | 2018-05-25 22:48 | XRAY Report ---
Reason: chest pain Procedure Date: 05/25/2018 Accession Number: [id number] / [id number] Procedure: XR - Chest 2 View X-Ray CPT Code: 89893 FULL RESULT: EXAM: CHEST RADIOGRAPHY EXAM DATE: 05/25/2018 10:09 PM. CLINICAL HISTORY: Chest pain. COMPARISON: None. TECHNIQUE: 2 views. FINDINGS: Lungs/Pleura: No focal opacities evident. No pleural effusion. No pneumothorax. Normal volumes. Mediastinum: Heart and mediastinal contours are unremarkable. Other: None. IMPRESSION: Normal 2-view chest radiography. RADIA
[2018-05-25] MEDS ORDERED: oxyCODONE/ACET 5/325 Prepack 4 PO STA (22:54)
[2018-05-25 23:49] VITALS: BP 141/90
== END 2018-05-25 23:08 | disposition home or self-care (01) ==
LOC: ED 21:32
DX: R07.89 Other chest pain (principal); M54.32 Sciatica, left side; I49.3 Ventricular premature depolarization; G89.29 Other chronic pain; M54.9 Dorsalgia, unspecified; F17.200 Nicotine dependence, unspecified, uncomplicated
CPT/HCPCS: 36415; 71046; 84484; 93005; 99283; A9270; J7512

== ENCOUNTER 2019-09-14 09:06 | Day surgery (SDC) | payer OTHER ==
[2019-09-14] MEDS ORDERED: CEFAZOLIN SODIUM IN 0.9 % NACL 2 GM/100 ML BAG IV ONE (09:13)
[2019-09-14] MEDS ORDERED: LACTATED RINGERS 1,000 ML IV ONE ×2 (09:42→11:42)
[2019-09-14] MEDS ORDERED: BUPIVACAINE 0.25% PF 30 ML VIAL ONE (09:47)
--- NOTE | 2019-09-14 09:54 | ANESTHESIA ---
Pre-Anesthesia VS, & Labs - Diagnosis Left knee OCD lesion - Procedure Left knee scope, possible shaving chondroplasty, possible chondral fixation, possible open auto vs allograft OATS Vital Signs: Temp Pulse Resp BP Pulse Ox 36.8 C 95 18 150/97 H 100 09/14/19 09:18 09/14/19 09:18 09/14/19 09:18 09/14/19 09:18 09/14/19 09:18 Height 6 ft Weight (kg) 104 kg Body Mass Index 29.0 - NPO >8 hours Home Medications and Allergies Home Medications: Ambulatory Orders Multivitamin [One-Daily Multi-Vitamin] 1 each PO DAILY 09/04/19 Multivitamin [One-Daily Multi-Vitamin] 1 each PO DAILY 09/04/19 Allergies/Adverse Reactions: Allergies Allergy/AdvReac Type Severity Reaction Status Date / Time nickel Allergy Rash Verified 09/04/19 11:50 hydrocodone [From Vicodin] AdvReac Nausea Verified 09/04/19 11:50 Anes History & Medical History - Anesthetic History Anesthesia Complications: reports: No previous complications - Medical History Cardiovascular: reports: None Pulmonary: reports: Sleep apnea (Probable SEJAL, scheduled for sleep study) Gastrointestinal: reports: None Urinary: reports: None Neuro: reports: None Musculoskeletal: reports: Other Endocrine/Autoimmune: reports: None Skin: reports: None Smoking Status: Current every day smoker (1 pack per day) Psychosocial: reports: No issues indicated - Surgical History General: Other Orthopedic: Arthroscopic surgery Exam General: Alert, Oriented x3, Cooperative, No acute distress Dental: WNL Mouth Openin Fingerbreadth Neck Mobility: Normal Mallampati classification: III Thyromental Distance: 4-6 cm Respiratory: Lungs clear, Normal breath sounds, No respiratory distress, No accessory muscle use Cardiovascular: Regular rate, Normal S1, Normal S2, No murmurs Mental/Cognitive Status: Alert/Oriented X3, Normal for patient Plan Anesthesia Type: General, Femoral Block (left) Regional Block: Per Surgeon's request for Post Op pain control Consent for Procedure(s) Verified and Reviewed: Yes Code Status: Attempt Resuscitation ASA classification: 2-Mild systemic disease Is this case an emergency?: No
[2019-09-14] MEDS ORDERED: DEXAMETHASONE 4 MG/ML VIAL IVP ONE (10:49)
[2019-09-14] MEDS ORDERED: LIDOCAINE-MPF 2% 5 ML VIAL IM ONE (10:49)
[2019-09-14] MEDS ORDERED: fentaNYL 100 MCG/2 ML VIAL IVP ONE (10:49)
[2019-09-14] MEDS ORDERED: ePHEDrine 50 MG/ML VIAL IVP ONE (10:49)
[2019-09-14] MEDS ORDERED: KETOROLAC 30 MG/ML VIAL IVP ONE (10:49)
[2019-09-14] MEDS ORDERED: GLYCOPYRROLATE 1 MG/5 ML VIAL IVP ONE (10:49)
[2019-09-14] MEDS ORDERED: ONDANSETRON 4 MG/2 ML VIAL IVP ONE (10:49)
[2019-09-14] MEDS ORDERED: ACETAMINOPHEN 1,000 MG/100 ML 100 ML IV ONE (10:49)
[2019-09-14] MEDS ORDERED: MIDAZOLAM 2 MG/2 ML VIAL IVP ONE (10:49)
[2019-09-14] MEDS ORDERED: EPINEPHrine 1 MG/ML AMP ONE (10:56)
[2019-09-14] MEDS ORDERED: BUPIVACAINE 0.25% PF 30 ML VIAL SUBQ ONE ×2 (11:40)
[2019-09-14] MEDS ORDERED: ONDANSETRON 4 MG/2 ML VIAL ONE (14:20)
[2019-09-14] MEDS: fentaNYL 100 MCG/2 ML VIAL ONE ×2 (14:32→14:37)
[2019-09-14] MEDS ORDERED: oxyCODONE 5 MG TABLET PO PRN (14:34)
[2019-09-14] MEDS ORDERED: ONDANSETRON 4 MG/2 ML VIAL IVP PRN (14:34)
--- NOTE | 2019-09-14 14:38 | OPERATIVE REPORT ---
Operative Report - General Procedure Date: 09/14/19 - Procedure Note Estimated Blood Loss (mL): 50 - Other Other Information/Narrative: Date of Procedure: September 14, 2019 Planned Procedure: Left knee arthroscopy, possible shaving chondroplasty, possible chondral repair, possible autograft OATS Pre-op diagnosis: Left knee focal medial femoral condyle osteochondral lesion Procedure performed: Left knee arthroscopy, autograft OATS Post-op diagnosis: Left knee focal medial femoral condyle osteochondral lesion Primary Surgeon: AMPARO LOZOYA Secondary Surgeon: CESILIA FERRARO Anesthesia: General LMA plus regional EBL: 50 ml Tourniquet: 92 minutes, left thigh at 250mmHg. Arthroscopic findings left knee: 1. Patella: Generally normal-appearing with a small medial area of wear with some fibrillation 2. Trochlea: Generally normal appearing with a small area of wear 3. Medial Compartment: Medial meniscus and medial root intact, tibial cartilage with mild diffuse softening, focal chondral defect of the weightbearing dome of the medial femoral condyle approximately 6 mm x 6 mm, with undermined chondral flaps at the periphery 4. Lateral Compartment: Lateral meniscus and lateral meniscal root intact, femoral cartilage intact, tibial cartilage intact 5. ACL and PCL: ACL intact, PCL intact COMPLICATIONS: none IMPLANTS: None. A 10 mm osteochondral graft was harvested from the superolateral femur. It was approximately 13 mm in depth. This was transferred to the chondral defect in the weightbearing portion of the medial femoral condyle. Indications for surgery: Patient is a 34-year-old male with an approximately 1 year history of left knee pain which started when he was carrying a box off of a [employer] truck and twisted his knee with subsequent swelling. His left knee pain was sharp, with medial localization. He underwent a short period of nonweightbearing, oral nonsteroidal medications followed by self-directed physical therapy using bands and TRX. Due to persistent symptoms he was interested in definitive treatment. The risks, benefits, and alternatives were discussed. Risks include pain, bleeding, infection, damage to nearby structures and cartilage, lack of symptom relief, need for further surgery, DVT, PE, stroke, and . Written consent was obtained. Procedure Details: The patient was met in the pre-operative hold area. Consent was verified. The patient verified the surgical site as the left knee. The patient then met with anesthesia and a regional block was placed. The patient was then brought back to the operating room. The patient was placed supine on the operating table. A general anesthetic was administered and LMA was placed. A small bump was placed beneath the left buttock to internally rotate the leg. A well-padded tourniquet was placed on the left thigh. The left lower extremity was then prepped and draped in the usual sterile fashion. A surgical timeout was then performed. The correct patient, the correct procedure, and the correct surgical site were confirmed by everyone in the room. Perioperative antibiotics had been administered. After surgical timeout and administration of antibiotics the Escmarch was used to exsanguinate the left lower extremity and the tourniquet was raised. An 11 blade scalpel was used to make an anteromedial and anterolateral arthroscopic portal. The arthroscope was introduced into the knee and a diagnostic arthroscopy was performed with the above-stated findings. The arthroscopic instruments were then removed from the knee. A midline incision was marked out on the knee from 2 fingerbreadths superior to the patella down to the medial aspect of the tibial tubercle. A 10 blade was used to dissect through the skin and subcutaneous tissue, and generous medial and lateral flaps were raised. The planned arthrotomy incision was marked out medially proceeding from the interval between the quad tendon and the VMO distally between the VMO and the patella, and then hugging the medial border of the patella and patellar tendon, in standard medial parapatellar fashion. This was sharply completed using a 10 blade, with care taken not to disrupt the anterior horn of the medial meniscus. The osteochondral defect of the medial femoral condyle was visualized and debrided with a ring curette to remove any loose chondral flaps. A 10 mm sizer was placed over the defect, and found to fit quite nicely, with good incorporation of areas needing replacement. The patella was then subluxed laterally exposing the lateral femoral condyle. It was felt that the cartilage was slightly thicker on the lateral femoral condyle, and so the decision was made to harvest the donor plug from the superior lateral aspect. Using the Arthrex single use OATS harvesting system a 10 mm in diameter plug, approximately 13 mm in depth was harvested per the technique guide. The graft depth was verified on the back table with 2 quadrants being approximately 12 mm in depth, and two quarters being approximately 13 mm in depth. We then used the recipient site tool to create the recipient socket on the medial femoral condyle. This was removed to a depth of approximately 11 mm (2 mm shy of the harvested plug). The alignment shanice was placed in the recipient site, and malleted until the depth was approximately 12 mm. On inspection it appeared that the anterior and lateral sides were slightly deeper than the posterior and medial sides, this helped guide graft orientation. The delivery tube was placed over the donor harvester and the graft was extruded into the recipient socket using the radiator core tester per the automotive diagnostic technician's guidelines. Final seating of the graft was performed using a tamp, with gentle taps. After final seating there was slight prominence along the lateral edge of the graft this was contoured smooth using a 15 blade. The wound was then copiously irrigated and we began our closure. The arthrotomy was closed using 0 PDS in interrupted [id number] fashion both proximally and distally with running 0 PDS in the central portion of the arthrotomy. Following closure the knee was allowed to flex to 90 degrees under gravity stress and the arthrotomy was verified intact. The tourniquet was then let down. Hemostasis was obtained first with the leg flexed and then with the leg in extension. Following hemostasis, the wound was irrigated, and the knee was flexed back up to 90 degrees to allow for closure. The deep soft tissues were closed using 0 Vicryl interrupted, and the subcutaneous tissues were closed using 2-0 Vicryl buried interrupted. The skin was closed using 3-0 Monocryl in running subcuticular fashion. The incisions were cleaned, and Mastisol and Steri-Strips were placed. 30 mL of quarter percent Marcaine plain was injected into the medial and lateral ej-incisional soft tissues. The portals were closed with 3-0 Monocryl. A silver impregnated island dressing was placed over the incision. A compressive dressing consisting of cotton gauze, an ABD was placed over the incision followed by a compressive Kerwin wrap from the ankle to the mid thigh. The surgical drapes were removed. The knee was placed in a knee range of motion brace locked in extension. The patient was awoken from anesthesia, extubated, transferred to the hospital bed, and taken to the PACU for recovery in good condition. Postoperative plan: 1. Discharge home from the same day surgery facility once the patient has met discharge criteria. 2. Nonweightbearing for 6 weeks, may progress with range of motion as tolerated on loaded only. 3. Return to clinic 1 week for wound check.
[2019-09-14 15:02] VITALS: BP 111/77
--- NOTE | 2019-09-16 14:27 | ANESTHESIA PROCEDURE NOTE ---
Diagnosis: Lt Knee OCD lesion Procedure: Left femoral nerve block Consent for Procedure(s) Verified and Reviewed: Yes Height and Weight: Height 6 ft Weight (kg) 104 kg Body Mass Index 29.0 Vital Signs: Temp Pulse Resp BP Pulse Ox 36.7 C 90 18 111/77 97 09/14/19 15:01 09/14/19 15:01 09/14/19 15:01 09/14/19 15:01 09/14/19 15:01 Allergies nickel Allergy (Verified 09/04/19 11:50) Rash hydrocodone [From Vicodin] Adverse Reaction (Verified 09/04/19 11:50) Nausea Requesting Provider: Bean Location: Left Femoral nerve ASA classification: 2-Mild systemic disease Is this case an emergency?: No Anes. Monitoring and Equipment: Non-invasive BP, Pulse oximetery Anes. Procedure Start Time: 10:17 Anes. Procedure Stop Time: 10:22 Procedure Notes: After time out, Patient's left groin was prepped with chloroprep. 100mcg fentan yl and 2mg versed were given for patient comfort. Ultrasound was used to image the left femoral nerve and a 22G stimiplex needle was advanced towards the nerve sheath. A total of 30ml of 0.5% ropivicaine with 4mg decadron was injected around the nerve sheath with adequate spread noted. Patient tolerated the procedure well. Full evaluation is pending.
== END 2019-09-14 09:07 | disposition home or self-care (01) ==
LOC: SDS 09:06
PROVIDERS: ATTEND Orthopaedic Surgery
PROC: 0SJD4ZZ Inspection of Left Knee Joint, Percutaneous Endoscopic Approach (ICD-10-PCS; 2019-09-14)
PROC: 0SUD07Z Supplement Left Knee Joint with Autologous Tissue Substitute, Open Approach (ICD-10-PCS; principal; 2019-09-14 11:00)
DX: M93.262 Osteochondritis dissecans, left knee (principal); G47.30 Sleep apnea, unspecified; F17.210 Nicotine dependence, cigarettes, uncomplicated

== ENCOUNTER 2020-03-14 12:50 | Outpatient (CLI) | payer OTHER ==
[2020-03-14] MEDS ORDERED: GADOBUTROL 10 MMOL/10 ML VIAL ONE (13:04)
[2020-03-14] MEDS ORDERED: GADOBUTROL 10 MMOL/10 ML VIAL IVP ONE (13:56)
--- NOTE | 2020-03-14 14:42 | MRI Report ---
PROCEDURE: Knee LT W/WO INDICATIONS: LT KNEE PAIN CONTRAST: IV CONTRAST: Gadavist ml: 10 TECHNIQUE: Noncontrast sagittal PD fast spin echo and T2 fast spin echo with fat saturation, sagittal 3-D spoile d GE with fat saturation; coronal T1 spin echo and PD fast spin echo with fat saturation, and axial T 1 spin echo and PD fast spin echo with fat saturation through the knee. Post-contrast axial, coronal , and sagittal T1 spin echo with fat saturation through the knee. COMPARISON: None. FINDINGS: Image quality: Excellent. Menisci: The medial and lateral menisci demonstrate normal morphology and internal signal. The meni scal root ligaments appear intact. Cruciate ligaments: The anterior and posterior cruciate ligaments appear intact. Medial structures: The medial collateral ligament appears intact. Visualized portions of the pes an serinus tendons appear normal. No abnormal bursal fluid. Lateral structures: The lateral collateral ligament, long and short heads of the biceps femoris tend on appear intact. The popliteus tendon appears intact. Iliotibial band appears normal. Anterior structures: The quadriceps and patellar tendons appear intact. Patellar alignment is urbano l. No femoral trochlear dysplasia or ventral trochlear prominence. Mild scarring is seen in Hoffa's fat pad. Bones and cartilage: Postsurgical changes are seen from osteochondral autograft transplantation to t he medial femoral condyle. The donor site is seen at the anterolateral aspect of the lateral femoral trochlea. There is edema within the osteochondral graft and the surrounding portion of the medial fem oral condyle. The graft positioning appears appropriate without significant defect of the overlying a rticular cartilage. The articular cartilage in the lateral compartment is intact. The articular cartilage in the anterior compartment is intact apart from the surgical defect. Joint space: A small joint effusion is present. A trace medial popliteal cyst is present. No enhancing soft tissue mass is identified on postcontrast images. Hypointense signal in the subcuta neous tissues in the prepatellar region is likely secondary to scarring or a chronic hematoma that agosto s resolved. IMPRESSION: Postsurgical changes from osteochondral graft to the medial femoral condyle with appropriate position ing. There is nonspecific edema within the osteochondral graft as well as the surrounding portion of the medial femoral condyle. Small joint effusion. Reviewed by: Jorge Naylor MD on 03/14/2020 2:40 PM PDT Approved by: Jorge Naylor MD on 03/14/2020 2:40 PM PDT Station ID: [id number]
== END 2020-03-14 12:51 | disposition home or self-care (01) ==
LOC: DI 12:50
PROVIDERS: ATTEND Orthopaedic Surgery
DX: M25.562 Pain in left knee (principal); M25.462 Effusion, left knee
CPT/HCPCS: 73723; A9585